=== PATIENT | female | born 1995 | race Caucasian/White ===

== ENCOUNTER → 2017-06-13 10:28 | Outpatient (CLI) | payer OTHER, SELFPAY ==
[2017-06-13 12:31] LABS: Follicle Stimulating Hormone 5.6 mIU/mL; T4 Free Direct 0.97 ng/dL (0.76-1.46); Thyroid Stim Hormone (TSH) 1.01 uIU/mL (0.358-3.74)
[2017-06-13 14:45] LABS: Pregnancy, Serum, hCG Quali. NEGATIVE Negative (0-9 Nonpreg)
== END ==
PROVIDERS: Family Provider Family Medicine; PCP Family Medicine; Visit Provider Physician Assistant
DX: L70.0 Acne vulgaris (principal)
CPT/HCPCS: 36415; 82157; 82627; 83001; 84270; 84402; 84403; 84439; 84443; 84702; 84703; 82626

== ENCOUNTER → 2017-06-21 11:54 | Outpatient (CLI) | payer OTHER, SELFPAY | PROVIDERS: Family Provider Family Medicine; PCP Family Medicine; Visit Provider Physician Assistant | DX: L70.0 Acne vulgaris (principal) | CPT/HCPCS: 82157 ==

== ENCOUNTER 2017-12-23 23:22 | Emergency (ER) | payer OTHER, SELFPAY ==
[2017-12-23 23:23] VITALS: BP 113/78; PULSE 96; RESP 15; TEMP 36.9; BMI 30.9
--- NOTE | 2017-12-23 23:52 | ED.VISSUMM ---
- ER Visit Summary Date of Service: 12/23/17 Chief Complaint: [] yesterday morning she developed sore throat and a mild muscle aches. She has been using Tylenol and can get her temperature down. Came in for further treatment. History of Present Illness: The patient is a 22 F [] with the above symptoms. Temperature was 100 at home. Sore throat. History of strep as a young child had her tonsils removed. She used Tylenol last at 8 PM. Came in for further evaluation. She has had some mild muscle aches Physical Examination: [] General: Well-nourished well-developed Eye exam normal ENT: Mild posterior oropharyngeal erythema. Tonsils resected. Neck: No significant lymphadenopathy Cardiovascular: Regular rate and rhythm no murmurs Abdominal: Nontender normal exam Back exam: Nontender normal exam Extremity: Normal exam Skin: Normal exam Neuro: Normal exam Test Results: [] Emergency Department Course and Treatment: [] She had a rapid strep that was negative. Given ibuprofen. At this time this is viral and she will use symptomatic management follow-up as an outpatient. I do not feel he needs antibiotics Treatment Plan: [] Disposition: [] Impression: [] Viral pharyngitis This note was generated with [employer] dictation software. It may contain incorrect words, spelling, and punctuation that were not noted in review of the chart prior to signing ED Disposition - Plan for ED Patient: Chief Complaint: General Illness Referrals: Aubrey uNr MD [Primary Care Provider] -
[2017-12-23] MEDS: Ibuprofen 600 MG Tablet PO (23:54)
--- NOTE | 2017-12-23 23:55 | ED.DCSUM_ITS ---
- ER Visit Summary Date of Service: 12/23/17 Chief Complaint: [] yesterday morning she developed sore throat and a mild muscle aches. She has been using Tylenol and can get her temperature down. Came in for further treatment. History of Present Illness: The patient is a 22 F [] with the above symptoms. Temperature was 100 at home. Sore throat. History of strep as a young child had her tonsils removed. She used Tylenol last at 8 PM. Came in for further evaluation. She has had some mild muscle aches Physical Examination: [] General: Well-nourished well-developed Eye exam normal ENT: Mild posterior oropharyngeal erythema. Tonsils resected. Neck: No significant lymphadenopathy Cardiovascular: Regular rate and rhythm no murmurs Abdominal: Nontender normal exam Back exam: Nontender normal exam Extremity: Normal exam Skin: Normal exam Neuro: Normal exam Test Results: [] Emergency Department Course and Treatment: [] She had a rapid strep that was negative. Given ibuprofen. At this time this is viral and she will use symptomatic management follow-up as an outpatient. I do not feel he needs antibiotics Treatment Plan: [] Disposition: [] Impression: [] Viral pharyngitis This note was generated with [employer] dictation software. It may contain incorrect words, spelling, and punctuation that were not noted in review of the chart prior to signing ED Disposition - Plan for ED Patient: Chief Complaint: General Illness Referrals: Aubrey Nur MD [Primary Care Provider] -
--- NOTE | 2017-12-24 00:26 | ED.DEP ---
ED Disposition - Plan for ED Patient: Disposition: Home or Assisted Living Chief Complaint: General Illness Instructions: ED Pharyngitis Viral Referrals: Aubrey Nur MD [Primary Care Provider] -
== END 2017-12-24 00:47 | disposition home or self-care (01) ==
PROVIDERS: Emergency Provider Emergency Medicine; Family Provider Family Medicine; PCP Family Medicine
DX: J02.9 Acute pharyngitis, unspecified (principal); F32.9 Major depressive disorder, single episode, unspecified; Z72.0 Tobacco use
CPT/HCPCS: 87880; 99283

== ENCOUNTER → 2018-09-27 10:04 | Outpatient (CLI) | payer OTHER, SELFPAY ==
[2018-09-27 09:27] VITALS: BMI 34.7
[2018-09-27 11:39] LABS: ALB/GLOB Ratio 0.9 RATIO (0.9-2.4); AST(SGOT) 18 U/L (15-37); Alanine Aminotransfer ALT/SGPT 15 U/L (13-56); Albumin, Serum 3.4 g/dL (3.2-5.0); Alkaline Phosphatase 85 U/L (45-117); Anion Gap 4 (5-15); BUN 12 mg/dL (7-18); BUN/Creat Ratio 14.8 RATIO (10-20); Calcium,Total 9.3 mg/dL (8.5-10.1); Chloride 105 mmol/L (98-107); Creatinine, Serum 0.81 mg/dL (0.55-1.02); EST Glomerular Filtration Rate 93 mL/min (>60); Est Glom Filt Rate - Afr Amer 113 mL/min (>60); Globulin 3.9 g/dL (2.2-4.2); Glucose 93 mg/dL (74-106); Potassium 4.1 mmol/L (3.5-5.1); Protein, Total 7.3 g/dL (6.4-8.2); Sodium Level 137 mmol/L (136-145)
[2018-09-27 16:19] LABS: Chlamydia Trachomatis by PCR Negative (Negative); Neisserai gonorrhoeae by PCR Negative (Negative); Probe Check PASS; Sample Adequacy Control PASS; Specimen Processing Control PASS
[2018-10-11 16:58] LABS: HPV APTIMA, High Risk Positive (Negative)
[2018-10-15 14:35] LABS: HPV Reflexed? YES, CHARGE PATIENT
== END ==
PROVIDERS: Family Provider Family Medicine; PCP Family Medicine; Referring Provider Nurse Practitioner Women's Health; Visit Provider Nurse Practitioner Women's Health
DX: Z12.4 Encounter for screening for malignant neoplasm of cervix (principal); Z11.3 Encounter for screening for infections with a predominantly sexual mode of transmission; Z91.89 Other specified personal risk factors, not elsewhere classified
CPT/HCPCS: 36415; 80053; 87491; 87591; 87624; 88175; G0145

== ENCOUNTER → 2019-10-02 16:25 | Outpatient (CLI) | payer OTHER, SELFPAY ==
[2019-10-02 10:05] VITALS: BMI 34.7
[2019-10-02 22:10] LABS: Chlamydia Trachomatis by PCR Negative (Negative); Neisserai gonorrhoeae by PCR Negative (Negative); Probe Check PASS; Sample Adequacy Control PASS; Specimen Processing Control PASS
[2019-10-13 08:36] LABS: HPV APTIMA, High Risk Positive (Negative)
[2019-10-13 08:37] LABS: HPV Reflexed? YES, CHARGE PATIENT
== END ==
PROVIDERS: Nurse Practitioner Women's Health; PCP Family Medicine; Referring Provider Obstetrics & Gynecology; Visit Provider Obstetrics & Gynecology
DX: Z11.3 Encounter for screening for infections with a predominantly sexual mode of transmission (principal); Z12.4 Encounter for screening for malignant neoplasm of cervix
CPT/HCPCS: 87491; 87591; 87624; 88175; G0145

== ENCOUNTER → 2019-10-24 17:53 | Outpatient (CLI) | payer OTHER, SELFPAY ==
[2019-10-02 10:05] VITALS: BMI 34.7
== END ==
PROVIDERS: PCP Family Medicine; Referring Provider Family Medicine; Visit Provider Family Medicine
DX: Z20.828 Contact with and (suspected) exposure to other viral communicable diseases (principal); B34.9 Viral infection, unspecified
CPT/HCPCS: 87633; 87635; U0003

== ENCOUNTER 2022-02-12 20:18 | Outpatient (CLI) | payer OTHER, SELFPAY ==
[2022-02-12 20:27] VITALS: BMI 38.4
[2022-02-12 20:33] VITALS: BP 124/85; PULSE 107
[2022-02-12 20:42] LABS: Bacteria 0 SEEN /hpf (None Seen); Mucous, Urine 0 SEEN /hpf (<or=2+); Red Blood Cells-Urine 0 SEEN /hpf (0-5); White Blood Cells 0 SEEN /hpf (0-5)
--- NOTE | 2022-02-12 21:14 | OB.TRI.HP_ITS ---
HPI - General General Date of Admission: 02/12/22 Date of Service: 02/12/22 Chief Complaint: ctx's HPI Narrative FLORIAN HUGHES, is a 26 F G1 who presents at 34+ week gestation with back pain that wraps around into her abdomen for about 7 hours. She reports she was feeling this pain come and go q 5 min. No vb, lof. Good FM. She offers no other complaints. A2GDM on 6 units of NPH at bedtime. Obesity in . H/o depression on antidepressant. [facility] Medical History (Updated 02/12/22 @ 21:[address] Sadia Thornton, DO) Acne Anxiety and depression Home Medications escitalopram oxalate 5 mg tablet (Lexapro) 10 mg PO QDAY 04/14/17 [History Last Taken Unknown] bupropion HCl 100 mg tablet,12 hr sustained-release (Wellbutrin SR) 100 mg PO DAILY 10/02/19 [History Last Taken Unknown] drospirenone 3 mg-ethinyl estradiol 0.03 mg tablet 1 tab PO DAILY #84 tabs 10/02/19 [Rx Last Taken Unknown] Allergy/AdvReac Type Severity Reaction Status Date / Time No Known Allergies Allergy Verified 10/02/19 10:04 Family History Grandmother Breast cancer Grandfather Cancer lung- smoker Surgical History H/O wisdom tooth extraction History of tonsillectomy Social History (Updated 10/02/19 @ 10:30 by Catina Deleon NP, [employer]) Smoking Status: Light Smoker (<10/day) alcohol intake: current details: social substance use type: does not use caffeine: Yes frequency: 3-4 times per week seatbelt use: always do you feel safe at home: Yes additional social history: Patients BF is a certified nursing assistant patient works at [employer] History 0 Elective abortions Hx Para 0 Spontaneous abortions Hx # Term Pregnancies Ectopic pregnancies Hx # Pregnancies Multiple births # of living children Physical Exam Const alert and no apparent distress General Appearance: comfortable HEENT normocephalic Resp normal respiratory effort GI soft to palpation and non-tender GI Narrative: Gravid NST FHR Rate Baby A Baseline: 140 Variability:: Moderate Accelerations:: 15 x 15 Decelerations:: None NST Reactive:: Yes FHR Category:: Category I Uterine Activity:: Ctx's q 4-6 min Assessment & Plan (1) 34 weeks gestation of : (2) Obesity affecting : (3) GDM, class A2: PLAN: - Pt reports being on NPH 6 units at bedtime (4) History of depression: (5) Threatened labor: PLAN: Pt presents at 34 wks with ctx's and back pain. Cvx /-2. UA sent. Ctx's q 4-6 min on toco. Category 1 tracing. Bedside TAUS performed confirming vertex presentation. Pt comfortable appearing. Will monitor for 2 hours and re check cvx at that time. Discussed possible observation overnight. Will collect GBS with next cervical exam. If she is making cervical change recommend PCN for GBS unknown and BMZ for lung maturity. Discussed plan with patient and her and questions answered.
[2022-02-12] MEDS: Acetaminophen 500 MG Tablet 1000 MG PO (21:32)
[2022-02-12 21:39] LABS: Color, Urine Yellow (Yellow); Glucose, Dipstick Normal (Normal); Ketone-Dipstick Negative (Negative); Leukocyte Esterase-Dipstick 25 /ul (Negative); Nitrite-Dipstick Negative (Negative); Occult Blood-Urine Negative /ul (Negative); Protein-Dipstick Negative (Negative); Urine Bilirubin Dipstick Negative (Negative); Urine Clarity Clear (Clear); Urine Urobilinogen Normal (Normal); Urine pH 6.5 (5.0 - 8.0)
[2022-02-12 21:46] LABS: Squamous Epithelial Cells - UA 0-5 SEEN /hpf (5-10)
== END 2022-02-12 23:10 | disposition home or self-care (01) ==
LOC: WPOUT 20:24 → WP 20:25
PROVIDERS: PCP Family Medicine; Visit Provider Obstetrics & Gynecology
DX: O99.333 Smoking (tobacco) complicating pregnancy, third trimester (principal); O47.03 False labor before 37 completed weeks of gestation, third trimester; O99.213 Obesity complicating pregnancy, third trimester; F17.200 Nicotine dependence, unspecified, uncomplicated; E66.9 Obesity, unspecified; Z3A.34 34 weeks gestation of pregnancy
CPT/HCPCS: 59025; 59050; 81001; 87081; 99218; G0378

== ENCOUNTER 2022-02-23 11:45 | Outpatient (CLI) | payer OTHER, SELFPAY ==
[2022-02-23 12:07] VITALS: BP 132/76; PULSE 104; TEMP 37.1; O2SAT 96; O2SAT 97
[2022-02-23 12:23] VITALS: BP 122/82; PULSE 98
[2022-02-23 12:24] LABS: Hematocrit 31.6 % (37-47); Hemoglobin 10.6 g/dL (12.0-15.0); Mean Corp Hgb Conc 33.5 g/dL (32-36); Mean Corpuscular Hgb 28.2 pg (27.0-32.0); Mean Platelet Vol. 11.6 fl (6.2-12.0); Platelet Count 244 K/mm3 (150-450); RBC Distribution Width CV 13.6 % (11.6-14.6); RBC Distribution Width SD 41.6 fl (35.1-43.9); Red Blood Count 3.76 M/mm3 (4.2-5.4); White Blood Count 8.7 K/mm3 (4.4-11.0)
[2022-02-23 12:31] VITALS: BMI 39.8
[2022-02-23 12:31] LABS: Protein, Urine (Random) 11.2 mg/dL (<11.9); Protein:Creat Ratio 148 mg/g CRE (0-200)
[2022-02-23 12:38] VITALS: BP 127/84; PULSE 100
[2022-02-23 12:54] VITALS: BP 119/81; PULSE 101
[2022-02-23 13:00] LABS: AST(SGOT) 20 U/L (15-37); Alanine Aminotransfer ALT/SGPT 25 U/L (13-56); Creatinine, Serum 0.68 mg/dL (0.55-1.02); EST Glomerular Filtration Rate 111 mL/min (>60); Est Glom Filt Rate - Afr Amer 134 mL/min (>60); Estimated Creatinine Clearance 108.26 ml/min; Uric Acid 6.2 mg/dL (2.6-6.0)
[2022-02-23 13:09] VITALS: BP 126/90; PULSE 100
[2022-02-23 13:24] VITALS: BP 130/82; PULSE 93
--- NOTE | 2022-02-23 23:59 | OB.TRI.NOTE ---
HPI - General General Date of Admission: 02/23/22 Date of Service: 02/23/22 Chief Complaint: elevated bp HPI Narrative FLORIAN HUGHES, is a 26 F who presents from the office for evaluation of elevated blood pressure she denied any vaginal bleeding or leaking of fluid. She denied any headache or visual disturbances [facility] Medical History (Updated 02/24/22 @ 00:[address] Brooke Rutledge MD) Acne Anxiety and depression Home Medications escitalopram oxalate 5 mg tablet (Lexapro) 10 mg PO QDAY 04/14/17 [History Last Taken 02/23/22 07:00] bupropion HCl 100 mg tablet,12 hr sustained-release (Wellbutrin SR) 150 mg PO DAILY 10/02/19 [History Last Taken 02/23/22 07:00] PNV 153-FA 400 mcg-om3 35 mg-dha 25 mg-epa 5 mg-fish oil chew tablet ( Gummies) 1 tab PO BID 02/23/22 [History Last Taken 02/23/22 07:00] aspirin 81 mg chewable tablet 81 mg PO DAILY 02/23/22 [History Last Taken 02/23/22 07:00] ferrous sulfate 325 mg (65 mg iron) tablet 325 mg PO QWEEK 02/23/22 [History Last Taken Unknown] Allergy/AdvReac Type Severity Reaction Status Date / Time No Known Allergies Allergy Verified 02/23/22 12:32 Family History Grandmother Breast cancer Grandfather Cancer lung- smoker Surgical History H/O wisdom tooth extraction History of tonsillectomy Social History (Updated 10/02/19 @ 10:30 by Catina Deleon NP, [employer]) Smoking Status: Light Smoker (<10/day) alcohol intake: current details: social substance use type: does not use caffeine: Yes frequency: 3-4 times per week seatbelt use: always do you feel safe at home: Yes additional social history: Patients BF is a acute care nursing assistant patient works at [employer] History 0 Elective abortions Hx Para 0 Spontaneous abortions Hx # Term Pregnancies Ectopic pregnancies Hx # Pregnancies Multiple births # of living children NST FHR Rate Baby A Baseline: 140 Variability:: Moderate Accelerations:: 15 x 15 Decelerations:: None NST Reactive:: Yes FHR Category:: Category I Uterine Activity:: Irregular contractions Assessment & Plan (1) GDM, class A2: PLAN: NST is reactive. Blood pressures are stable. No evidence of preeclampsia. Patient discharged home with routine instructions and follow-up. Call or return if any signs or symptoms of preeclampsia. (2) 35 weeks gestation of :
== END 2022-02-23 13:50 | disposition home or self-care (01) ==
LOC: WPOUT 11:55 → WP 11:56
PROVIDERS: PCP Family Medicine; Referring Provider Advanced Practice Midwife; Visit Provider Advanced Practice Midwife
DX: R03.0 Elevated blood-pressure reading, without diagnosis of hypertension (principal); Z33.1 Pregnant state, incidental
CPT/HCPCS: 36415; 59025; 59050; 82565; 82570; 84156; 84450; 84460; 84550; 85027; 99218; G0378